=== PATIENT | female | born 1955 | race Caucasian/White ===

== ENCOUNTER 2023-07-08 21:40 | Emergency (ER) | payer MEDICARE, OTHER, SELFPAY ==
[2023-07-08] MEDS ORDERED: Sodium Chloride 0.9% 1,000 ML ONE (22:08)
[2023-07-08 22:17] LABS: ALT (SGPT) 15 U/L (8-55); AST (SGOT) 15 U/L (5-34); Albumin 3.3 g/dL (3.4-4.8); Alkaline Phosphatase 209 U/L (40-110); Anion Gap 19 mmol/L (10-20); BUN (Urea Nitrogen) 76 mg/dL (9.8-20.1); Bilirubin, Total 0.9 mg/dL (0.2-1.2); Calc. Creatinine Clearance 0 mL/min (70-130); Calcium 9.5 mg/dL (7.8-10.44); Carbon Dioxide 12 mmol/L (23-31); Chloride 105 mmol/L (98-107); Estimated GFR 7; Globulin 4.8 g/dL (2.4-3.5); Glucose 193 mg/dL (80-115); Potassium 4.7 mmol/L (3.5-5.1); Protein, Total 8.1 g/dL (5.8-8.1); Sodium 131 mmol/L (136-145)
[2023-07-08 22:18] LABS: Hematocrit 24.4 % (36.0-47.0); Hemoglobin 7.7 g/dL (12.0-16.0); Lymphocytes 7 % (21-51); MDiff Complete? YES; Mean Corpuscular HGB CONC 31.7 g/dL (32.0-36.0); Mean Corpuscular Hemoglobin 26.7 pg (27.0-31.0); Mean Corpuscular Volume 84.3 fl (78.0-98.0); Mean Platelet Volume 7.1 fL (7.4-10.4); Monocytes 6 % (0-10); Neutrophil 87 % (42-75); Platelet Count 435 10x3/uL (130-400); RBC Distribution Width 14.3 % (11.5-14.5); Red Blood Cell (RBC) Count 2.89 mill/uL (4.20-5.40)
[2023-07-08] MEDS ORDERED: Ibuprofen 200 MG TAB ONE (22:20)
[2023-07-08 22:21] LABS: Bilirubin Negative (Negative); Blood, Urine Large (Negative); Clarity Cloudy (Clear); Glucose, Urine (Dipstick) Negative (Negative); Ketone, Urine Negative (Negative); Leukocyte Negative (Negative); Nitrite Negative (Negative); Protein, Urine (Dipstick) > or equal to 300 mg/dL (Neg-Trace); Urobilinogen 0.2 mg/dL (Less than 2); pH, Urine 5.5 (5.0-9.0)
[2023-07-08 22:22] LABS: Troponin I 0.034 ng/mL (< 0.028)
[2023-07-08 22:22] LABS: Bacteria/HPF Rare-Few HPF (None Seen); CAUTI Indications for Culture Fever or rigors; Squamous Epithelial 0-3 HPF (0-3)
[2023-07-08 22:23] LABS: Urine Culture Reflex No No
[2023-07-08] MEDS ORDERED: cefTRIAXone (ROCEPHIN) 2 GM VIAL ONE (22:28)
[2023-07-08] MEDS ORDERED: Ipratropium/Albuterol 3 ML NEB ONE (22:28)
[2023-07-08] MEDS ORDERED: Sodium Chloride 0.9% 100 ML ONE (22:28)
[2023-07-08 22:40] LABS: SARS-CoV-2 NAA Rapid Test Not Detected (NotDetected)
[2023-07-08 23:36] LABS: Base Excess-Venous -13.3 mmol/L (-2.0 to 3.0); Bicarbonate (HCO3v) 12.2 mmol/L (22.0-28.0); CO2 Tension (PvCO2) 26.5 mmHg (42.0-51.0); Chloride 108 mmol/L (98-107); Hemoglobin - Calc 7.4 g/dL (12.0-16.0); Potassium 4.4 mmol/L (3.5-5.1); Sodium 132 mmol/L (138-145); T. Carbon Dioxide 13.1 mmol/L (22.0-28.0); vO2 Saturation-calc 55.6 % (60.0-85.0)
== END 2023-07-09 00:09 | disposition short-term general hospital (02) ==
LOC: NAV ERS 21:40
DX: A41.9 Sepsis, unspecified organism (principal); J18.9 Pneumonia, unspecified organism; E87.1 Hypo-osmolality and hyponatremia; D64.9 Anemia, unspecified; N28.9 Disorder of kidney and ureter, unspecified; B97.4 Respiratory syncytial virus as the cause of diseases classified elsewhere; I12.0 Hypertensive chronic kidney disease with stage 5 chronic kidney disease or end stage renal disease; N18.6 End stage renal disease; Z20.822 Contact with and (suspected) exposure to COVID-19
CPT/HCPCS: 71045; 80053; 81001; 82330; 82435; 82803; 83605; 84132; 84295; 84484; 85014; 85025; 85379; 87040; 87086; 87804 ×2; 87807; 93005; 94760; U0002; 51701; 87076; 87149; 96365; J0696; J3490; J7050; J7620